=== PATIENT | male | born 1955 | race Caucasian/White ===

== ENCOUNTER 2019-10-04 08:09 | Observation (INO) ==
[2019-10-04] MEDS ORDERED: ENOXAPARIN 100 MG/ML SYRINGE SUBCUT STA (08:29)
[2019-10-04] MEDS ORDERED: NITROGLYCERIN 2% OINT 1 INCH/GM PACK TOP STA (08:29)
[2019-10-04] MEDS ORDERED: ASPIRIN 325 MG TABLET PO STA (08:29)
[2019-10-04 08:49] LABS: Basophils # 0.1 10*3/uL (0.0-0.2); Basophils % 0.5 % (0.0-0.8); Eosinophils # 0.2 10*3/uL (0.0-0.87); Eosinophils % 1.5 % (0.00-10.9); Hematocrit 47.5 VOL% (42.0-52.0); Hemoglobin 15.8 GM/DL (14.0-18.0); Immature Granulocytes % 0.4 %; Immature Granulocytes Absolute 0.05 #; Lymphocytes # 1.4 10*3/uL (1.4-4.0); Lymphocytes % 12.2 % (21.2-54.2); Mean Corpuscular HGB Conc 33.3 GM/DL (32-36); Mean Corpuscular Volume 92.1 FL (87-102); Mean Platelet Volume 9.1 FL (9.6-12.0); Monocytes % 7.9 % (1.7-12.7); Neutrophils % 77.5 % (38.7-73.9); Platelet Count 235 T/CUMM (130-400); Red Blood Count 5.16 MC/CUMM (3.8-5.5); Red Cell Distribution Width 12.9 % (9.3-17.3); White Blood Count 11.6 T/CUMM (4-12)
[2019-10-04 08:58] LABS: INR 1.1; PT Patient Result 12.3 SECS (9.6-12.2); Partial Thromboplastin Time 29.2 SECS (20.8-36.0)
[2019-10-04 09:10] LABS: Albumin 4.1 G/DL (3.4-5.0); Bilirubin,Total 0.9 MG/DL (0.2-1.0); Calcium 9.3 MG/DL (8.5-10.1); Osmolality,Calculated 275.7 MOS/KG (273-304); Total Protein 7.5 G/DL (6.4-8.3)
[2019-10-04] MEDS ORDERED: BISACODYL 5 MG TABLET PO PRN (09:17)
[2019-10-04] MEDS ORDERED: POTASSIUM CHLORIDE 20 MEQ TABLET PO PRN (09:17)
[2019-10-04] MEDS ORDERED: ACETAMINOPHEN 325 MG TABLET PO PRN (09:17)
[2019-10-04] MEDS ORDERED: LACTULOSE 20 GM/30 ML UDCUP PO PRN (09:17)
[2019-10-04] MEDS ORDERED: guaiFENesin/DM ER 600-30 MG TABLET PO PRN (09:17)
[2019-10-04] MEDS ORDERED: ONDANSETRON 4 MG/2 ML VIAL IV PRN (09:17)
[2019-10-04] MEDS ORDERED: MAGNESIUM SULF RIDER 4 GM in PREMIX 1 EACH IV PRN (09:17)
[2019-10-04] MEDS ORDERED: ZALEPLON 5 MG CAPSULE PO PRN ×2 (09:17→12:29)
[2019-10-04] MEDS ORDERED: MAGNESIUM SULF RIDER 2 GM in PREMIX 1 EACH IV PRN (09:17)
[2019-10-04] MEDS ORDERED: diphenhydrAMINE CAP 25 MG CAPSULE PO PRN (09:17)
[2019-10-04] MEDS ORDERED: ALUMINUM/MAGNES/SIMETH MAX STR 30 ML UDCUP PO PRN (09:20)
[2019-10-04 09:24] LABS: Apearance,Urine CLEAR (Clear); Bilirubin,Urine Negative (Negative); Blood, Urine Small mg/dL (Negative); Glucose,Urine (UA) Negative (Negative); Ketones,Urine Negative (Negative); Nitrite,Urine Negative (Negative); Protein,Urine Negative; RBC,Urine 4 /HPF (0-4); Urine Color Colorless (Yellow); Urine Specific Gravity 1.002 (1.001-1.035); Urine Urobilinogen < 2.0 EU/DL (0.2-1.0); WBC,Urine 2 /HPF (0-6)
[2019-10-04] MEDS ORDERED: NITROGLYCERIN SL 0.4 MG TABLET SL PRN (10:01)
[2019-10-04] MEDS ORDERED: ENOXAPARIN 40 MG/0.4 ML SYRINGE SUBCUT SCH (10:30)
[2019-10-04] MEDS ORDERED: diphenhydrAMINE CAP 25 MG CAPSULE PO ONE (10:58)
[2019-10-04] MEDS ORDERED: DIAZEPAM 5 MG TABLET PO ONE (10:58)
[2019-10-04] MEDS ORDERED: SODIUM CHLORIDE 0.9% 1,000 ML IV SCH (11:00)
[2019-10-04] MEDS ORDERED: HEPARIN/NACL 0.9% 2 UNITS/ML 1,000 ML IV ONE (11:02)
[2019-10-04] MEDS ORDERED: LIDOCAINE 1% 20 ML VIAL ONE (11:02)
[2019-10-04] MEDS ORDERED: MIDAZOLAM 2 MG/2 ML VIAL ONE ×2 (11:09→12:11)
[2019-10-04] MEDS ORDERED: fentaNYL 100 MCG/2 ML VIAL ONE (11:10)
[2019-10-04] MEDS ORDERED: VERAPAMIL 5 MG/2 ML VIAL ONE (11:25)
[2019-10-04] MEDS ORDERED: NITROGLYCERIN DRIP 50 MG/250 ML BOTTLE IV ONE (11:25)
[2019-10-04] MEDS ORDERED: MAGNESIUM HYDROXIDE SUSP 30 ML UDCUP PO PRN (11:46)
[2019-10-04] MEDS ORDERED: ENOXAPARIN 60 MG/0.6 ML SYRINGE ONE (11:48)
[2019-10-04 12:09] LABS: Troponin I 0.071 NG/ML (0.00-0.045)
[2019-10-04] MEDS ORDERED: CLOPIDOGREL 300 MG TABLET ONE (12:25)
[2019-10-04] MEDS: NICOTINE 21 MG/24 HR PATCH TRANSDERM SCH (14:29)
[2019-10-04] MEDS: NITROGLYCERIN 2% OINT 1 INCH/GM PACK TOP SCH ×2 (14:30→21:47)
[2019-10-04 15:42] LABS: Troponin I 0.104 NG/ML (0.00-0.045)
[2019-10-04 18:37] LABS: Troponin I 0.119 NG/ML (0.00-0.045)
[2019-10-04] MEDS ORDERED: ATORVASTATIN 40 MG TABLET PO SCH (21:00)
[2019-10-04] MEDS ORDERED: RANITIDINE 150 MG TABLET PO SCH (21:00)
[2019-10-04] MEDS: buPROPion SR 150 MG TABLET PO SCH (21:47)
[2019-10-04] MEDS: METOPROLOL TARTRATE 25 MG TABLET PO SCH (21:47)
[2019-10-05] MEDS: NITROGLYCERIN 2% OINT 1 INCH/GM PACK TOP SCH (03:49)
[2019-10-05 05:53] LABS: Basophils # 0.1 10*3/uL (0.0-0.2); Basophils % 0.6 % (0.0-0.8); Eosinophils # 0.3 10*3/uL (0.0-0.87); Eosinophils % 3.4 % (0.00-10.9); Hematocrit 44.1 VOL% (42.0-52.0); Hemoglobin 14.7 GM/DL (14.0-18.0); Immature Granulocytes % 0.4 %; Immature Granulocytes Absolute 0.04 #; Lymphocytes % 20.1 % (21.2-54.2); Mean Corpuscular HGB Conc 33.3 GM/DL (32-36); Mean Corpuscular Volume 90.9 FL (87-102); Mean Platelet Volume 9.3 FL (9.6-12.0); Monocytes % 8.6 % (1.7-12.7); Neutrophils % 66.9 % (38.7-73.9); Platelet Count 196 T/CUMM (130-400); Red Blood Count 4.85 MC/CUMM (3.8-5.5); Red Cell Distribution Width 12.9 % (9.3-17.3); White Blood Count 9.8 T/CUMM (4-12)
[2019-10-05 06:24] LABS: Calcium 8.7 MG/DL (8.5-10.1); Osmolality,Calculated 278.4 MOS/KG (273-304); VLDL CHOLESTEROL 27.6 MG/DL
[2019-10-05 08:20] VITALS: BP 106/65
[2019-10-05] MEDS: NICOTINE 21 MG/24 HR PATCH TRANSDERM SCH (08:57)
[2019-10-05] MEDS: lisinopriL 5 MG TABLET PO SCH ×2 (08:58→09:00)
[2019-10-05] MEDS: METOPROLOL TARTRATE 25 MG TABLET PO SCH (08:58)
[2019-10-05] MEDS: buPROPion SR 150 MG TABLET PO SCH (08:58)
[2019-10-05] MEDS ORDERED: CLOPIDOGREL 75 MG TABLET PO SCH (09:00)
[2019-10-05] MEDS ORDERED: ASPIRIN EC 81 MG TABLET PO SCH (09:00)
[2019-10-05] MEDS ORDERED: PANTOPRAZOLE 40 MG TABLET PO SCH (09:00)
[2019-10-05] MEDS ORDERED: ENOXAPARIN 40 MG/0.4 ML SYRINGE SUBCUT SCH (11:00)
[2019-10-05] MEDS ORDERED: ATORVASTATIN 80 MG TABLET PO SCH (21:00)
== END 2019-10-05 10:35 | disposition home or self-care (01) ==
LOC: N.EDINP 08:09 → N.ED 08:09 → N.TELES 10:31
PROVIDERS: ADMIT Internal Medicine Cardiovascular Disease; ATTEND Internal Medicine Cardiovascular Disease
PROC: CLCCHCL (ICD-10-PCS; 2019-10-04 11:45)